=== PATIENT | male | born 1980 | race Caucasian/White ===

== ENCOUNTER 2019-08-18 10:46 | Outpatient (NON) | payer BC, SELFPAY ==
[2019-08-18 23:03] LABS: SARS-CoV-2 RNA PCR Negative
== END 2019-08-18 10:47 ==
PROVIDERS: PCP Family Medicine; Visit Provider Family Medicine
DX: R50.9 Fever, unspecified (principal); Z20.828 Contact with and (suspected) exposure to other viral communicable diseases
CPT/HCPCS: 87635; C9803; U0003

== ENCOUNTER 2021-02-21 08:09 | Outpatient (CLI) | payer BC, SELFPAY ==
--- NOTE | 2021-02-21 08:22 | ECHO_ITS ---
Patient Info Name: Boston Nava Age: 40 years : 1980 Gender: Male Ht: 70 in Wt: 250 lbs BSA: 2.41 m2 HR: 71 bpm BP: 121 / 94 mmHg Heart Rhythm: Sinus Rhythm Technical Quality: Good Exam Date: 02/21/2021 8:36 AM Exam Location: [facility] Pulmonary Patient Status: Outpatient Admit Date: 02/21/2021 Staff Ordering Physician: Patria Robert MD Farmworker Livestock: Cristal Davis RDCS Attending Provider: Patria Robert MD Referring Physician: Jakob JORDAN; Exam Type: CA echo doppler color flow Study Info Indications R07.89 - Other chest pain Complete two-dimensional, color flow and Doppler transthoracic echocardiogram is performed. Summary 1. Complete two-dimensional, color flow and Doppler transthoracic echocardiogram is performed. 2. Left ventricular systolic function is normal, estimated at 60-65%. 3. There is mildly increased left ventricular wall thickness. 4. The left ventricular diastolic function is normal. 5. Global longitudinal strain is normal at -20 %. 6. There is trace tricuspid valve regurgitation. 7. No pulmonary hypertension, estimated pulmonary arterial systolic pressure is 23 mmHg. Left Ventricle Left ventricular chamber dimension is normal. Left ventricular systolic function is normal, estimated at 60-65%. There is mildly increased left ventricular wall thickness. The left ventricular diastolic function is normal. Global longitudinal strain is normal at -20 %. Right Ventricle Right ventricular chamber dimension is normal. Right ventricular systolic function is normal. Left Atria Left atrial chamber dimension is normal. Right Atria Right atrial chamber dimension is normal. Aortic Valve The aortic valve is probable trileaflet. There is no aortic valve stenosis. There is no aortic valve regurgitation. Pulmonic Valve The pulmonic valve is not well visualized. There is trace pulmonic regurgitation. Mitral Valve The mitral valve has normal leaflets. There is trace mitral valve regurgitation. Tricuspid Valve The tricuspid valve leaflets are normal. There is trace tricuspid valve regurgitation. No pulmonary hypertension, estimated pulmonary arterial systolic pressure is 23 mmHg. Pericardium/Pleural The pericardium appears normal. There is no pericardial effusion. Inferior Vena Cava Normal inferior vena cava with >50% collapse upon inspiration consistent with normal right atrial pressure, 5 mmHg. Aorta The aortic root size at the sinus of Valsalva is normal. Left Ventricular Outflow Tract Name Value Normal LVOT 2D LVOT Diameter 2.1 cm LVOT Doppler LVOT Peak Gradient 3 mmHg LVOT Mean Gradient 2 mmHg LVOT VTI 17 cm LVOT VTI/AV VTI Ratio 0.8 LVOT Stroke Volume 61 ml LVOT CO 4.2 l/min LVOT CI 1.7 l/min/m2 Pulmonic Valve Name
== END 2021-02-21 08:10 | disposition home or self-care (01) ==
PROVIDERS: PCP Family Medicine; Visit Provider Family Medicine
DX: R07.89 Other chest pain (principal); Q79.60 Ehlers-Danlos syndrome, unspecified
CPT/HCPCS: 93306

== ENCOUNTER 2021-03-14 08:40 | Outpatient (CLI) | payer BC, SELFPAY ==
--- NOTE | 2021-03-14 08:48 | EST_ITS ---
Patient Info Name: Boston Nava Age: 41 years : 1980 Gender: Male Ht: 70 in Wt: 255 lbs BSA: 2.43 m2 HR: 103 bpm BP: 108 / 77 mmHg Technical Quality: Good Exam Date: 03/14/2021 9:14 AM Exam Location: [facility] Patient Status: Outpatient Admit Date: 03/14/2021 Staff Ordering Physician: Patria Robert MD Vegetable Canner: Mare Alfonso RDCS Attending Provider: Patria Robert MD Referring Physician: Jakob JORDAN; Exercise Technologist: Amina Phillips CT Exercise Physician: Salinas Preston DO Exam Type: CA stress echo Study Info Indications - v tach Treadmill exercise stress echocardiogram is performed. Summary 1. 1. Negative Pradeep exercise stress test for ischemic ST changes by ECG criteria. 2. 2. Good functional capacity, achieving 10 METs of workload. 3. 3. Appropriate HR response to exercise. 4. 4. Appropriate HR recovery at 1 minute post exercise. 5. 5. Negative stress echocardiogram for ischemia by wall motion analysis. 6. 6. Patient informed of the above results. Stress Echo Findings Left Ventricle Appropriate increase in LV endocardial thickening with systole. Appropriate augmentation of contractility with systole. No wall motion abnormality. Left Ventricle Normal LV systolic function, no wall motion abnormality. Protocol: Pradeep Stress ECG Details Stage: REST Duration (min): 16 min : 5 sec Speed (mph): 0.0 Grade (%): 0 HR (bpm): 70 SBP (mmHg): 103 DBP (mmHg): 76 METS: --- Stage: REST Duration (min): 16 min : 41 sec Speed (mph): 0.0 Grade (%): 0 HR (bpm): 68 SBP (mmHg): 103 DBP (mmHg): 76 METS: --- Stage: STAGE 1 Duration (min): 1 min : 0 sec Speed (mph): 1.7 Grade (%): 10 HR (bpm): 97 SBP (mmHg): 103 DBP (mmHg): 76 METS: --- Stage: STAGE 1 Duration (min): 2 min : 0 sec Speed (mph): 1.7 Grade (%): 10 HR (bpm): 98 SBP (mmHg): 103 DBP (mmHg): 76 METS: --- Stage: STAGE 1 Duration (min): 3 min : 0 sec Speed (mph): 1.7 Grade (%): 10 HR (bpm): 104 SBP (mmHg): 136 DBP (mmHg): 83 METS: --- Stage: STAGE 2 Duration (min): 1 min : 0 sec Speed (mph): 2.5 Grade (%): 12 HR (bpm): 112 SBP (mmHg): 136 DBP (mmHg): 83 METS: --- Stage: STAGE 2 Duration (min): 2 min : 0 sec Speed (mph): 2.5 Grade (%): 12 HR (bpm): 118 SBP (mmHg): 117 DBP (mmHg): 82 METS: --- Stage: STAGE 2 Duration (min): 3 min : 0 sec Speed (mph): 2.5 Grade (%): 12 HR (bpm): 119 SBP (mmHg): 117 DBP (mmHg): 82 METS: --- Stage: STAGE 3 Duration (min): 1 min : 0 sec Speed (mph): 3.4 Grade (%): 14 HR (bpm): 141 SBP (mmHg): 188 DBP (mmHg): 83 METS: --- Stage: STAGE 3 Duration (min): 2 min : 0 sec Speed (mph): 3.4 Grade (%): 14 HR (bpm): 157 SBP (mmHg): 188 DBP (mmHg): 83 METS: --- Stage: STAGE 3 Duration
== END 2021-03-14 08:41 | disposition home or self-care (01) ==
PROVIDERS: PCP Family Medicine; Visit Provider Family Medicine
DX: I47.2 Ventricular tachycardia (principal)
CPT/HCPCS: 93351

== ENCOUNTER 2022-04-24 08:16 | Outpatient (CLI) | payer BC, SELFPAY ==
[2022-04-24 19:35] LABS: Basophils Percent Auto 0.6 % (0.2-1.2); Eosinophils Absolute Auto 0.1 K/mm3 (0-0.3); Eosinophils Percent Auto 1.8 % (0-4.4); Hematocrit 44.5 % (42.0-52.0); Hemoglobin 14.6 g/dL (14.0-18.0); Immature Granulocyte Absolute 0.02 K/mm3 (0.00-0.031); Immature Granulocyte Percent A 0.3 % (0-0.5); Lymphocytes Absolute Auto 1.67 K/mm3 (0.9-3.2); Lymphocytes Percent Auto 27.1 % (18.3-44.2); Mean Corpuscular HGB Conc 32.8 g/dl (32-36); Mean Corpuscular Volume 91.6 fl (80-100); Mean Platelet Volume 9.7 fl (7.4-10.4); Monocytes Absolute Auto 0.5 K/mm3 (0.1-0.6); Monocytes Percent Auto 8.6 % (2.6-8.5); Neutrophils Absolute Auto 3.8 K/mm3 (1.3-6.7); Neutrophils Percent Auto 61.6 % (45.5-73.1); Platelet Count Result 280 k/mm3 (150-375); Red Blood Count 4.86 M/mm3 (4.6-6.20); Red Cell Distribution Width 13.2 % (11.5-14.5); White Blood Count 6.2 K/mm3 (4.5-10.0)
[2022-04-24 20:39] LABS: Alanine Aminotransferase 33 U/L (6-50); Albumin Level 4.3 g/dL (3.5-5.1); Alkaline Phosphatase 98 U/L (38-126); Anion Gap 6 mmol/L (8-16); Aspartate Amino Transferase 50 U/L (17-59); Bilirubin,Total 0.5 mg/dL (0.2-1.3); Blood Urea Nitrogen 13 mg/dL (9-20); Calcium 8.8 mg/dL (8.4-10.2); Carbon Dioxide 28 mmol/L (22-30); Chloride 104 mmol/L (98-107); Cholesterol 155 mg/dL (0-200); Estimated Glomerular Filt Rate > 60; Glucose 69 mg/dL (65-110); HDL Direct 33 mg/dL; Potassium 3.9 mmol/L (3.4-5.0); Sodium 138 mmol/L (137-145); Triglycerides 72 mg/dL (<150)
[2022-04-24 20:52] LABS: LDL Cholesterol Direct 91 mg/dL
[2022-04-24 21:21] LABS: Hemoglobin A1C 5.2 % (<5.7)
[2022-04-24 21:45] LABS: Folic Acid 1.9 ng/mL (2.76->20)
== END 2022-04-24 08:17 | disposition home or self-care (01) ==
LOC: ANHGOSHLAB 08:17
PROVIDERS: PCP Family Medicine; Visit Provider Physician Assistant
DX: F33.41 Major depressive disorder, recurrent, in partial remission (principal); E66.01 Morbid (severe) obesity due to excess calories; Z68.37 Body mass index [BMI] 37.0-37.9, adult; Z79.899 Other long term (current) drug therapy
CPT/HCPCS: 36415; 80053; 80061; 82607; 82746; 83036; 84443; 85025

== ENCOUNTER 2022-04-28 09:44 | Outpatient (CLI) | payer BC, SELFPAY ==
[2022-05-02 05:05] LABS: Homocysteine 44.7 umol/L (<11.4)
[2022-05-03 11:02] LABS: Methylmalonic Acid 136 nmol/L (87-318)
== END 2022-04-28 09:45 | disposition home or self-care (01) ==
LOC: ANHGOSHLAB 09:45
PROVIDERS: PCP Family Medicine; Visit Provider Family Medicine
DX: E53.8 Deficiency of other specified B group vitamins (principal)
CPT/HCPCS: 36415; 83090; 83921

== ENCOUNTER 2022-06-15 11:54 | Outpatient (CLI) | payer BC, SELFPAY ==
[2022-06-15 19:39] LABS: Basophils Percent Auto 0.3 % (0.2-1.2); Eosinophils Absolute Auto 0.1 K/mm3 (0-0.3); Eosinophils Percent Auto 0.8 % (0-4.4); Hematocrit 44.3 % (42.0-52.0); Hemoglobin 14.8 g/dL (14.0-18.0); Immature Granulocyte Absolute 0.01 K/mm3 (0.00-0.031); Immature Granulocyte Percent A 0.2 % (0-0.5); Lymphocytes Absolute Auto 1.42 K/mm3 (0.9-3.2); Lymphocytes Percent Auto 23.7 % (18.3-44.2); Mean Corpuscular HGB Conc 33.4 g/dl (32-36); Mean Corpuscular Hemoglobin 30.5 pg (26-34); Mean Corpuscular Volume 91.3 fl (80-100); Monocytes Absolute Auto 0.5 K/mm3 (0.1-0.6); Platelet Count Result 294 k/mm3 (150-375); Red Blood Count 4.85 M/mm3 (4.6-6.20); Red Cell Distribution Width 13.2 % (11.5-14.5)
== END 2022-06-15 11:55 | disposition home or self-care (01) ==
LOC: ANHGOSHLAB 11:56
PROVIDERS: PCP Family Medicine; Visit Provider Family Medicine
DX: E53.8 Deficiency of other specified B group vitamins (principal)
CPT/HCPCS: 36415; 82607; 85025

== ENCOUNTER 2022-09-27 13:41 | Outpatient (CLI) | payer BC, SELFPAY ==
[2022-09-27 18:18] LABS: Basophils Percent Auto 0.7 % (0.2-1.2); Eosinophils Absolute Auto 0.1 K/mm3 (0-0.3); Eosinophils Percent Auto 1.5 % (0-4.4); Hematocrit 44.8 % (42.0-52.0); Immature Granulocyte Absolute 0.01 K/mm3 (0.00-0.031); Immature Granulocyte Percent A 0.2 % (0-0.5); Lymphocytes Absolute Auto 1.43 K/mm3 (0.9-3.2); Lymphocytes Percent Auto 23.3 % (18.3-44.2); Mean Corpuscular HGB Conc 33.5 g/dl (32-36); Mean Corpuscular Hemoglobin 30.2 pg (26-34); Mean Corpuscular Volume 90.1 fl (80-100); Mean Platelet Volume 9.6 fl (7.4-10.4); Monocytes Absolute Auto 0.6 K/mm3 (0.1-0.6); Monocytes Percent Auto 10.4 % (2.6-8.5); Neutrophils Absolute Auto 3.9 K/mm3 (1.3-6.7); Neutrophils Percent Auto 63.9 % (45.5-73.1); Platelet Count Result 296 k/mm3 (150-375); Red Blood Count 4.97 M/mm3 (4.6-6.20); Red Cell Distribution Width 13.2 % (11.5-14.5); White Blood Count 6.2 K/mm3 (4.5-10.0)
[2022-09-30 21:09] LABS: Testosterone Total 477 ng/dL (250-1100)
[2022-10-04 12:29] LABS: Immunoglobulin A 112 mg/dL (47-310); TTG IGA AB >250.0 U/mL (<15.0)
== END 2022-09-27 13:42 | disposition home or self-care (01) ==
LOC: ANHGOSHLAB 13:42
PROVIDERS: PCP Family Medicine; Visit Provider Family Medicine
DX: E53.8 Deficiency of other specified B group vitamins (principal); N52.9 Male erectile dysfunction, unspecified
CPT/HCPCS: 36415; 82607; 82784; 84403; 85025; 86364

== ENCOUNTER 2023-10-16 09:14 | Outpatient (CLI) | payer BC, SELFPAY ==
[2023-10-16 13:05] LABS: Alanine Aminotransferase 27 U/L (6-50); Albumin Level 4.5 g/dL (3.5-5.1); Alkaline Phosphatase 80 U/L (38-126); Anion Gap 11 mmol/L (4-12); Aspartate Amino Transferase 77 U/L (17-59); Bilirubin,Total 0.6 mg/dL (0.2-1.3); Blood Urea Nitrogen 10 mg/dL (9-20); Calcium 9.4 mg/dL (8.4-10.2); Carbon Dioxide 26 mmol/L (22-30); Chloride 101 mmol/L (98-107); Cholesterol 154 mg/dL (0-200); Estimated Glomerular Filt Rate > 60; Glucose 94 mg/dL (65-110); HDL Direct 44 mg/dL; Potassium 3.9 mmol/L (3.4-5.0); Sodium 138 mmol/L (137-145); Triglycerides 62 mg/dL (<150)
[2023-10-16 13:07] LABS: Basophils Absolute Auto 0.1 K/mm3 (0.0-0.1); Basophils Percent Auto 0.8 % (0.2-1.2); Eosinophils Absolute Auto 0.1 K/mm3 (0-0.3); Eosinophils Percent Auto 1.9 % (0-4.4); Hematocrit 43.5 % (42.0-52.0); Hemoglobin 14.4 g/dL (14.0-18.0); Immature Granulocyte Absolute 0.02 K/mm3 (0.00-0.031); Immature Granulocyte Percent A 0.3 % (0-0.5); Lymphocytes Absolute Auto 1.72 K/mm3 (0.9-3.2); Lymphocytes Percent Auto 27.5 % (18.3-44.2); Mean Corpuscular HGB Conc 33.1 g/dl (32-36); Mean Corpuscular Hemoglobin 30.1 pg (26-34); Mean Corpuscular Volume 90.8 fl (80-100); Mean Platelet Volume 9.6 fl (7.4-10.4); Monocytes Absolute Auto 0.5 K/mm3 (0.1-0.6); Monocytes Percent Auto 8.6 % (2.6-8.5); Neutrophils Absolute Auto 3.8 K/mm3 (1.3-6.7); Neutrophils Percent Auto 60.9 % (45.5-73.1); Platelet Count Result 316 k/mm3 (150-375); Red Blood Count 4.79 M/mm3 (4.6-6.20); Red Cell Distribution Width 13.1 % (11.5-14.5); White Blood Count 6.3 K/mm3 (4.5-10.0)
[2023-10-16 13:15] LABS: LDL Cholesterol Direct 86 mg/dL
== END 2023-10-16 09:15 | disposition home or self-care (01) ==
LOC: ANHGOSHLAB 09:16
PROVIDERS: PCP Family Medicine; Visit Provider Student in an Organized Health Care Education/Training Program
DX: K90.0 Celiac disease (principal); Z13.220 Encounter for screening for lipoid disorders; Z13.29 Encounter for screening for other suspected endocrine disorder
CPT/HCPCS: 36415; 80053; 80061; 82607; 82728; 84443; 85025

== ENCOUNTER 2024-11-21 02:01 | Day surgery (SDC) | payer BC, SELFPAY ==
[2024-11-06 13:51] VITALS: BMI 37.3
--- OUTSIDE RECORDS SUMMARY | 2024-11-21 02:04 | XMS_ITS | Clinical Summary ---
Author Organization [facility] [place] [address] Address [address] [place] [address] Care Team Providers Care Construction Executive Name Role Phone Patria Robert MD Primary Care Provider + Allergies No known active allergies Medications buPROPion XL (WELLBUTRIN XL) 300 mg 24 hr tablet Take 300 mg by mouth senior mobile solutions architect before breakfast 1 Active metoprolol tartrate (LOPRESSOR) 25 mg immediate release tablet Take 25 mg by mouth 2 (two) times a day 2 Active tadalafiL (CIALIS) 5 mg tablet 1 Active Active Problems No known active problems Surgical History Surgery Date Site/Laterality Comments VASECTOMY 02/20/2020 - 03/21/2020 Family History Medical History Relation Name Comments Anxiety disorder Brother 1 Atrial fibrillation Brother 1 Anxiety disorder Brother 2 Anxiety disorder Maternal Grandfather Depression Maternal Grandfather Cancer Maternal Grandmother Anxiety disorder Mother Depression Mother Rheum arthritis Mother Cancer Paternal Grandfather Heart failure Paternal Grandfather Diabetes Paternal Grandmother Relation Name Status Comments Brother 1 Alive Brother 2 Father Alive Maternal Grandfather Maternal Grandmother Mother Alive Paternal Grandfather Paternal Grandmother Social History Tobacco Use Types Packs/Day Years Used Date Smoking Tobacco: Never Tobacco Cessation:Counseling Given: Not Answered Personal Safety Answer Date Recorded Getting School Help Needed Not on file 04/21 Sex and Gender Information Value Date Recorded Sex Assigned at Not on file Legal Sex Male 2:49 PM PAINTER AND 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 APPRENTICE Gender Identity Male 05/16/2021 12:57 PM CDT Sexual Orientation Not on file Obstetrics History Last Filed Vital Signs Vital Sign Reading Time Taken Comments Blood Pressure 132/84 11/02/2021 9:37 AM CDT Pulse 82 11/02/2021 9:37 AM CDT Temperature - - Respiratory Rate - - Oxygen Saturation 97% 11/02/2021 9:37 AM CDT Inhaled Oxygen Concentration - - Weight 119.7 kg (264 lb) 11/02/2021 9:37 AM CDT Height 177.8 cm (5' 10) 11/02/2021 9:37 AM CDT Body Mass Index 37.88 11/02/2021 9:37 AM CDT Plan of Treatment Not on file Insurance [address] [id number] Care Teams Construction Executive Relationship Specialty Start Date End Date Patria Robert MD PCP - General Family Medicine 01/25/21
--- OUTSIDE RECORDS SUMMARY | 2024-11-21 02:04 | XMS_ITS | Encounter Summary ---
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
--- OUTSIDE RECORDS SUMMARY | 2024-11-21 02:04 | XMS_ITS | Clinical Summary ---
Author Organization [facility] [employer] Address [address] [place] [address] Care Team Providers Care Broke Handler Name Role Phone Patria Robert MD Primary Care Provider [phone] Unknown, Provider Unavailable Unavailable Source Comments [facility],non-owned Affiliates and Associated Physician Practices is amultiple site organization consisting of ambulatory clinics and hospital sitesin [place], [place], [place] and [place]. This disclosure is being madepursuant to the Care Everywhere program and may not contain all information available regarding this patient. Last updated 17.[facility] [employer] Allergies No known active allergies Medications * Be aware that medications may not be up to date on this document. Alwaysverify current medications with the patient. ofloxacin (OCUFLOX) 0.3 % ophthalmic solution 2 gtts q 2-4 hrs x2 days, QID x5 days 1 Bottle 10/16/2016 Active buPROPion XL 24hr (WELLBUTRIN-XL) 300 MG tablet Take 300 mg by mouth every morning 10/11/2020 Active tadalafil (CIALIS) 5 MG tablet 01/25/2021 Active Active Problems Problem Noted Date Diagnosed Date Benign hypermobility syndrome 02/03/2021 Class 2 obesity due to exces s calories without serious comorbidity with body mass index (BMI) of 37.0 to 37.9 in adult 02/03/2021 Social History Tobacco Use Types Packs/Day Years Used Date Smoking Tobacco: Never Smokeless Tobacco: Never Alcohol Use Standard Drinks/Week Comments Yes 0 (1 standard drink = 0.6 oz pur e alcohol) rarely PHQ-2 Answer Date Recorded PHQ2 TOTAL SCORE 0 02/03/2021 Sex and Gender Information Value Date Recorded Sex Assigned at Not on file Legal Sex Male 4:34 AM ACCOUNT RECEIVABLE CLERK Gender Identity Not on file Sexual Orientation Not on file Last Filed Vital Signs Vital Sign Reading Time Taken Comments Blood Pressure 134/92 07/21/2021 7:46 AM CDT Pulse 52 07/21/2021 7:46 AM CDT Temperature 36.7 C (98.1 F) 02/03/2021 1:35 PM ACCOUNT RECEIVABLE CLERK Respiratory Rate 18 02/03/2021 1:35 PM ACCOUNT RECEIVABLE CLERK Oxygen Saturation 99% 07/21/2021 7:46 AM CDT Inhaled Oxygen Concentration - - Weight 120.2 kg (265 lb) 07/21/2021 7:46 AM CDT Height 180.3 cm (5' 11) 07/21/2021 7:46 AM CDT Body Mass Index 36.96 07/21/2021 7:46 AM CDT Plan of Treatment Health Maintenance Due Date Last Done Comments HIV SCREENING 1995 HEPATITIS C SCREENING 03/02/1998 DTAP/TDAP/TD VACCINES (1 - Tdap) 1999 HEPATITIS B VACCINE (1 of 3 - 19+ 3-dose series) 1999 HPV VACCINE (1 - 3-dose SCDM series) 2007 SCREENING FOR DIABETES 02/03/2021 DEPRESSION SCREENING 02/20/2024 COVID-19 VACCINE (1 - 2023-2 5 season) 2024 INFLUENZA VACCINE (#1) 2024 LIPID TESTING 05/16/2026 05/16/2021 ZOSTER VACCINE (1 of 2) 2030 HIB VACCINE Aged Out No longer eligi ble based on patient's age to complete this topic MENINGOCOCCAL (Group B) VACC INE SHARED DECISION-MAKING Aged Out No longer eligibl e based on patient's age to complete this topic MENINGOCOCCAL GROUPS A/C/Y/W VACCINE Aged Out No longer eligible b ased on patient's age to complete this topic PNEUMOCOCCAL VACCINE Aged Out No long er eligible based on patient's age to complete this topic Insurance ANTH Care Teams Broke Handler Relationship Specialty Start Date End Date Patria Robert MD [address] [place] [address] PCP - General 01/31/21 Unknown, Provider [address] [place] [address] 01/31/21
--- OUTSIDE RECORDS SUMMARY | 2024-11-21 02:04 | XMS_ITS | Clinical Summary ---
Author Organization [facility] Address [address] [place] [address] Care Team Providers Care River Driver Name Role Phone Unavailable Primary Care Provider Unavailabl e Social History Tobacco Use Types Packs/Day Years Used Date Smoking Tobacco: Never Assessed Sex and Gender Information Value Date Recorded Sex Assigned at Not on file Legal Sex Male 11:18 PM PRODUCTION GRIP Gender Identity Not on file Sexual Orientation Not on file Last Filed Vital Signs Vital Sign Reading Time Taken Comments Blood Pressure 124/80 03/28/2018 8:48 AM PRODUCTION GRIP Pulse 68 03/28/2018 8:48 AM PRODUCTION GRIP Temperature - - Respiratory Rate - - Oxygen Saturation - - Inhaled Oxygen Concentration - - Weight 112.5 kg (248 lb) 03/28/2018 8:34 AM PRODUCTION GRIP Height 176.5 cm (5' 9.5) 03/28/2018 8:34 AM PRODUCTION GRIP Body Mass Index 36.1 03/28/2018 8:34 AM PRODUCTION GRIP Plan of Treatment Health Maintenance Due Date Last Done Comments Annual Physical 1983 Hepatitis C 1998 Hepatitis B Vaccines (1 of 3 - 19+ 3-dose series) 1999 HPV Vaccines (1 - 3-dose SCD M series) 2007 COVID-19 Vaccine (2023-2 5 season) 2024 DTaP, Tdap and Td Vaccines ( 2 - Td or Tdap) 09/21/2025 09/22/2015 Meningococcal B Vaccine Aged Out No l onger eligible based on patient's age to complete this topic Meningococcal Vaccine Aged Out No gwen amaya eligible based on patient's age to complete this topic Pneumococcal Vaccine: Pediat rics (0 to 5 Years) and At-Risk Patients (6 to 49 Years) Aged Out No longer eligi ble based on patient's age to complete this topic RSV Immunizations Under 20 Months Aged Out No longer eligible based on patient's age to complete this topic
[2024-11-21 07:21] VITALS: BP 113/89; PULSE 82; RESP 16; TEMP 36.7; O2SAT 98; BMI 37.6
[2024-11-21] MEDS: LACTATED RINGERS 1,000 ML 150 ML IV CONT (07:32)
--- NOTE | 2024-11-21 08:17 | WPDANESEPPF ---
Anes - Initial Pre Proc Eval Procedure: Operation Date: 11/21/24 08:30 Proposed Procedures p Screening Colonoscopy - Danny Salazar MD Date/Time: 11/21/24 08:17 Surgeon: Danny Salazar MD Pre Op Diagnosis: Encounter for screening for malignant neoplasm of Patient Data Age: 44 Gender: M Height: 1.78 m Weight: 119 kg Last Vital Signs Temp 98.1 F 11/21/24 07:21 Pulse 82 11/21/24 07:21 Resp 16 11/21/24 07:21 BP 113/89 11/21/24 07:21 Pulse Ox 98 11/21/24 07:21 O2 Del Method Room Air 11/21/24 07:21 Allergies Allergy/AdvReac Type Severity Reaction Status Date / Time atomoxetine (From Strattera) AdvReac Intermediate sexual Verified 11/18/24 15:17 dysfunction Home Medications ?Medication ?Instructions ?Recorded ?Confirmed ?Type vitamin B complex (B 1 tablet PO DAILY 05/03/22 11/21/24 History Complex-Vitamin B12 tablet) vitamins 30 30 mg iron-10 1 cap PO DAILY 04/07/24 11/21/24 History mg iron-folic acid 1 mg-om3 capsule Patient hx anesthesia problems: none Family hx anesthesia problems: none Results Review: All pre-operative results and documents have been reviewed as part of the pre-operative evaluation. [facility] Past Medical History Medical History Eczematous dermatitis History of depression Sciatica of right side Family History Family History Grandparent Diabetes mellitus Depression Family history of alcoholism Family history of arthritis Family history of lung cancer Family history of malignant neoplasm of esophagus Sibling Family history of blood dyscrasia Father Adenocarcinoma carcinomatosis Mother Benign colon polyp Other Fam hx-ischem heart disease Social History Social History Smoking status: Never smoker Alcohol intake: current Alcohol use details: rarely Substance use: never Substance use type: does not use Do You Feel Safe in your Home?: Yes Lack of Transportation: No Lack of Food: Never True Current Housing: I Have Housing Concerned About Future Housing: No Difficulty Paying Gas/Electric Bills: No Difficulty Paying for Meds: No Currently Unemployed: No Education: Master's Degree or Higher Difficulty w/ Childcare or Family Care: No Living arrangements: with family Spiritual care concerns: No Anes - Eval Final PreProcedure Day of Procedure 11/21/24 08:17 Patient weight: obese Lungs: normal air movement Airway: Mallampati scale class III Neurological: alert and oriented Last oral intake: >/= 8 hours ASA classification: III Emergent: no Anesthetic plan: proceed Anesthesia type and monitoring: general GIVS and standard monitoring Results Review: All pre-operative results and documents have been reviewed as part of the pre-operative evaluation. BMI 37, hx of celiac. Informed Consent: The patient's anesthetic plan and its attendant risks and benefits were discussed with the patient/family/POA. Questions were solicited and answers provided to the satisfaction of the patient/family/POA.
--- NOTE | 2024-11-21 08:30 | PM.IMHP ---
H&P: HPI History of Present Illness Date/Time: 11/21/24 08:30 Chief Complaint: Screening colonoscopy Narrative: This is the patient's first colonoscopy. There are no GI symptoms and there is no family history of colorectal cancer. the patient has a 2 year diagnosis of celiac disease. Review of Systems Review of Systems: All systems reviewed & are unremarkable except as noted in HPI and below PMFSH Past Medical History Medical History Eczematous dermatitis History of depression Sciatica of right side Family History Family History Grandparent Diabetes mellitus Depression Family history of alcoholism Family history of arthritis Family history of lung cancer Family history of malignant neoplasm of esophagus Sibling Family history of blood dyscrasia Father Adenocarcinoma carcinomatosis Mother Benign colon polyp Other Fam hx-ischem heart disease Social History Social History Smoking status: Never smoker Alcohol intake: current Alcohol use details: rarely Substance use: never Substance use type: does not use Do You Feel Safe in your Home?: Yes Lack of Transportation: No Lack of Food: Never True Current Housing: I Have Housing Concerned About Future Housing: No Difficulty Paying Gas/Electric Bills: No Difficulty Paying for Meds: No Currently Unemployed: No Education: Master's Degree or Higher Difficulty w/ Childcare or Family Care: No Living arrangements: with family Spiritual care concerns: No Meds Home Medications and Allergies Home Medications ?Medication ?Instructions ?Recorded ?Confirmed ?Type vitamin B complex (B 1 tablet PO DAILY 05/03/22 11/21/24 History Complex-Vitamin B12 tablet) vitamins 30 30 mg iron-10 1 cap PO DAILY 04/07/24 11/21/24 History mg iron-folic acid 1 mg-om3 capsule Allergies Allergy/AdvReac Type Severity Reaction Status Date / Time atomoxetine (From Strattera) AdvReac Intermediate sexual Verified 11/18/24 15:17 dysfunction Vital Signs Vital Signs - 24 hr 11/21/24 07:21 Temperature 98.1 F Pulse Rate 82 Respiratory Rate 16 Blood Pressure 113/89 Pulse Oximetry 98 Oxygen Delivery Room Air Exam Const: General: cooperative and healthy appearing Resp: Effort & Inspection: normal respiratory effort and able to speak in complete sentences Auscultation: clear to auscultation bilaterally Cardio: Rate: regular rate Rhythm: regular rhythm GI: Inspection: normal to inspection GI Palp: No No hepatosplenomegaly present Auscultation: normal bowel sounds Rectal Exam: deferred Skin: General skin exam: normal color Psych: Appearance: grossly normal Mental Status: mental status grossly normal Assessment and Plan Assessment and plan (1) Encounter for screening colonoscopy: Code(s): Z12.11 - Encounter for screening for malignant neoplasm of colon Status: Acute Assessment and Plan: The patient is deemed a good candidate for the procedure. Consent signed. Will proceed.
[2024-11-21 09:06] VITALS: BP 136/90; PULSE 81; RESP 20; O2SAT 100
[2024-11-21 09:16] VITALS: BP 128/90; PULSE 76; RESP 21; O2SAT 100
[2024-11-21 09:26] VITALS: BP 136/91; PULSE 73; RESP 18; O2SAT 100
== END 2024-11-21 09:32 | disposition home or self-care (01) ==
PROVIDERS: PCP Family Medicine; Referring Provider Family Medicine; Visit Provider Internal Medicine Gastroenterology
PROC: 0DJD8ZZ Inspection of Lower Intestinal Tract, Via Natural or Artificial Opening Endoscopic (ICD-10-PCS; CPT 45378; principal; 2024-11-21 08:30)
DX: Z12.11 Encounter for screening for malignant neoplasm of colon (principal); K90.0 Celiac disease; E66.9 Obesity, unspecified; Z68.37 Body mass index [BMI] 37.0-37.9, adult
CPT/HCPCS: 45378; J2003; J2704; J7120

== ENCOUNTER 2024-12-01 08:01 | Outpatient (CLI) | payer BC, SELFPAY ==
--- OUTSIDE RECORDS SUMMARY | 2024-12-01 08:10 | XMS_ITS | Clinical Summary ---
Author Organization [facility] [employer] Address [address] [place] [address] Care Team Providers Care Filling Station Attendant Name Role Phone Patria Robert MD Primary Care Provider [phone] Unknown, Provider Unavailable Unavailable Source Comments [facility],non-owned Affiliates and Associated Physician Practices is amultiple site organization consisting of ambulatory clinics and hospital sitesin [place], [place], [place] and [place]. This disclosure is being madepursuant to the Care Everywhere program and may not contain all information available regarding this patient. Last updated 17.[facility] [employer] Allergies No known active allergies Medications * [...] on file Legal Sex Male 4:34 AM TANKAGE SUPERVISOR Gender Identity Not on file Sexual Orientation Not on file Last Filed Vital Signs Vital Sign Reading Time Taken Comments Blood Pressure 134/92 07/21/2021 7:46 AM CDT Pulse 52 07/21/2021 7:46 AM CDT Temperature 36.7 C (98.1 F) 02/03/2021 1:35 PM TANKAGE SUPERVISOR Respiratory Rate 18 02/03/2021 1:35 PM TANKAGE SUPERVISOR Oxygen Saturation 99% 07/21/2021 7:46 AM CDT [...] age to complete this topic Insurance [facility]TH [facility] [address] [place] [phone] Care Teams Filling Station Attendant Relationship Specialty Start Date End Date Patria Robert MD [address] [place] [address] PCP - General 01/31/21 Unknown, Provider [address] [place] [address] 01/31/21
--- OUTSIDE RECORDS SUMMARY | 2024-12-01 08:10 | XMS_ITS | Encounter Summary ---
Author Organization [facility] Address [address] [place] [address] Care Team Providers Care Plastics Nurse Name Role Phone Unavailable Primary Care Provider Unavailabl e Encounter Details Date Type Department Care Team (Latest Contact Info) Description 12/25/2017 Abstract [facility] Medical [facility] , Generic Conversion, Social History Tobacco Use Types Packs/Day Years Used Date Smoking Tobacco: Never Assessed Sex and Gender Information Value Date Recorded Sex Assigned at Not on file Legal Sex Male 11:18 PM LATENT FINGERPRINT EXAMINER Gender Identity Not on file Sexual Orientation Not on file documented as of this encounter Plan of Treatment Not on file documented as of this encounter Visit Diagnoses Not on filedocumented in this encounter
--- OUTSIDE RECORDS SUMMARY | 2024-12-01 08:10 | XMS_ITS | Clinical Summary ---
Author Organization [facility] Address [address] [place] [id number] Care Team Providers Care Sonoscope Operator Name Role Phone Unavailable Primary Care Provider Unavailabl e Social History Tobacco Use Types Packs/Day Years Used Date Smoking Tobacco: Never Assessed Sex and Gender Information Value Date Recorded Sex Assigned at Not on file Legal Sex Male 11:18 PM ELECTRIC INSTALLER Gender Identity Not on file Sexual Orientation Not on file Last Filed Vital Signs Vital Sign Reading Time Taken Comments Blood Pressure 124/80 03/28/2018 8:48 AM ELECTRIC INSTALLER Pulse 68 03/28/2018 8:48 AM ELECTRIC INSTALLER Temperature - - Respiratory Rate - - Oxygen Saturation - - Inhaled Oxygen Concentration - - Weight 112.5 kg (248 lb) 03/28/2018 8:34 AM ELECTRIC INSTALLER Height 176.5 cm (5' 9.5) 03/28/2018 8:34 AM ELECTRIC INSTALLER Body Mass Index 36.1 03/28/2018 8:34 AM ELECTRIC INSTALLER Plan of Treatment Health Maintenance Due Date Last Done Comments Annual Physical 1983 Hepatitis C 1998 Hepatitis B Vaccines (1 of 3 - 19+ 3-dose series) 1999 HPV Vaccines (1 - 3-dose SCD M series) 2007 COVID-19 Vaccine (2023-2 5 season) 2024 Influenza Adult (#1) 2024 11/19/2017, 11/19/2016 DTaP, Tdap and Td Vaccines ( 2 - Td or Tdap) 09/21/2025 09/22/2015 Meningococcal B Vaccine Aged Out No l onger eligible based on patient's age to complete this topic Meningococcal Vaccine Aged Out No gwen amaya eligible based on patient's age to complete this topic Pneumococcal Vaccine: Pediatrics (0 to 5 Years) and At-Risk Patients (6 to 49 Years) Aged Out No longer eligible b ased on patient's age to complete this topic RSV Immunizations Under 20 Months Aged Out No longer eligible b ased on patient's age to complete this topic
--- OUTSIDE RECORDS SUMMARY | 2024-12-01 08:10 | XMS_ITS | Clinical Summary ---
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
[2024-12-01 13:01] LABS: Hematocrit 44.1 % (42.0-52.0); Hemoglobin 14.5 g/dL (14.0-18.0); Immature Granulocyte Percent A 0.3 % (0-0.5); Lymphocytes Absolute Auto 1.34 K/mm3 (0.9-3.2); Mean Corpuscular HGB Conc 32.9 g/dl (32-36); Mean Corpuscular Hemoglobin 29.7 pg (26-34); Mean Corpuscular Volume 90.2 fl (80-100); Nucleated Red Blood Cells Absolute Auto 0.000 K/mm3 (0.0-0.012); Nucleated Red Blood Cells Perc 0.0 % (0.0-0.2); Platelet Count Result 306 k/mm3 (150-375); Red Blood Count 4.89 M/mm3 (4.6-6.20); White Blood Count 7.1 K/mm3 (4.5-10.0)
[2024-12-01 13:20] LABS: Alanine Aminotransferase 26 U/L (6-50); Albumin Level 4.3 g/dL (3.5-5.1); Alkaline Phosphatase 84 U/L (38-126); Anion Gap 9 mmol/L (4-12); Aspartate Amino Transferase 43 U/L (17-59); Bilirubin,Total 0.8 mg/dL (0.2-1.3); Blood Urea Nitrogen 10 mg/dL (9-20); Calcium 9.1 mg/dL (8.4-10.2); Carbon Dioxide 26 mmol/L (22-30); Chloride 103 mmol/L (98-107); Cholesterol 169 mg/dL (0-200); Estimated Glomerular Filt Rate > 60; Glucose 84 mg/dL (65-110); HDL Direct 36 mg/dL; Potassium 3.9 mmol/L (3.4-5.0); Sodium 138 mmol/L (137-145); Total Protein 8.5 g/dL (6.3-8.2); Triglycerides 93 mg/dL (<150)
[2024-12-01 13:56] LABS: Ferritin 107.00 ng/mL (17.9-464)
[2024-12-01 14:14] LABS: Vitamin B12 379.0 pg/mL (239-931)
== END 2024-12-01 08:02 | disposition home or self-care (01) ==
LOC: ANHGOSHLAB 08:01
PROVIDERS: PCP Family Medicine; Visit Provider Family Medicine
DX: Z00.00 Encounter for general adult medical examination without abnormal findings (principal); K90.0 Celiac disease
CPT/HCPCS: 36415; 80053; 80061; 82306; 82607; 82728; 85025